=== PATIENT | male | born 1950 | race Hispanic/Latino ===

== ENCOUNTER → 2018-05-08 | Outpatient (CLI) | payer MEDICARE ==
[~2018-05-08] MED LIST: REGADENOSON 0.4 MG/5 ML PF SYG IVP SCH
== END | disposition home or self-care (01) ==
LOC: SHCH 08:16
PROVIDERS: ATTEND Internal Medicine Cardiovascular Disease
DX: I44.7 Left bundle-branch block, unspecified (principal); I35.0 Nonrheumatic aortic (valve) stenosis
CPT/HCPCS: 78452; 93017; 96374; A9500 ×2; J2785 ×2

== ENCOUNTER 2020-01-26 09:53 | Inpatient (IN) | payer MEDICARE ==
[~2020-01-26] VITALS: Ht 177.8 cm; Wt 103.6 kg
[2020-01-26 10:27] LABS: BASOPHILS % (AUTO) 0.2 % (0.0-5.0); EOSINOPHILS % (AUTO) 0.4 % (0.0-8.0); HEMATOCRIT 31.8 % (42-54); LYMPHOCYTES % (AUTO) 5.9 % (21.0-51.0); MEAN CORPUSCULAR VOLUME 88.3 fL (79-99); NEUTROPHILS % (AUTO) 84.1 % (40.0-77.0); PLATELET COUNT (AUTO) 142 K/uL (130-400); RED CELL DISTRIBUTION WIDTH 13.2 % (11.0-15.5); WHITE BLOOD COUNT (AUTO) 9.7 K/uL (4.8-10.8)
[2020-01-26 10:35] LABS: CREATININE 1.7 mg/dL (0.5-1.5); POTASSIUM 3.7 mmol/L (3.5-5.1)
[2020-01-26 10:36] LABS: INR 0.97 (0.85-1.15); PARTIAL THROMBOPLASTIN TIME 32.2 SEC (26.3-35.5); PROTHROMBIN TIME 10.5 SEC (9.6-11.6)
[2020-01-26 10:48] LABS: ALBUMIN 2.9 g/dL (3.5-5.0); BILIRUBIN,TOTAL 1.8 mg/dL (0.2-1.0); TOTAL PROTEIN, SERUM 6.4 g/dL (6.0-8.3)
[2020-01-26 10:57] LABS: B-TYPE NATRIURETIC PEPTIDE 521 pg/mL (0-100)
[2020-01-26] MEDS ORDERED: BENZONATATE 100 MG CAPSULE PO ONE (11:27)
[2020-01-26] MEDS ORDERED: FUROSEMIDE 10 MG/ML 4ML VIAL ONE (11:27)
[2020-01-26] MEDS ORDERED: IPRATROPIUM/ALBUTEROL SULFATE 3 ML SOLUTION IH ONE (11:33)
[2020-01-26] MEDS ORDERED: BENZONATATE 100 MG CAPSULE PO PRN (13:45)
[2020-01-26] MEDS: IPRATROPIUM/ALBUTEROL SULFATE 3 ML SOLUTION IH SCH ×3 (14:00→21:23)
[2020-01-26] MEDS ORDERED: SITA100T12 PO (14:12)
[2020-01-26] MEDS ORDERED: LABE300T2 PO (14:12)
[2020-01-26] MEDS ORDERED: ASPI-1197 PO (14:12)
[2020-01-26] MEDS ORDERED: AMLO1CAP2 PO (14:12)
[2020-01-26] MEDS ORDERED: GLIM4TAB36 PO (14:13)
[2020-01-26] MEDS ORDERED: ROSU20TA23 PO (14:13)
[2020-01-26] MEDS ORDERED: FISH1CAP20 PO (14:13)
[2020-01-26] MEDS ORDERED: METF-526 PO (14:13)
[2020-01-26] MEDS ORDERED: TAMS-1 PO (14:13)
[2020-01-26] MEDS ORDERED: TERA5CAP4 PO (14:13)
[2020-01-26] MEDS ORDERED: AZITHROMYCIN 500MG+NS 250ML 250 ML IV SCH (14:15)
--- NOTE | 2020-01-26 16:00 | NUR ---
ADMISSION FROM ER. PER SERVICES OF EDI BLAIR .PT AAO X 3 , REVIEW PLAN OF CARE . PLACED ON DROPLET ,DUE TO COUGHING , AND REVIEW CALL LIGHT, SAFETY, AND FALL RISK , HOB UP.
[2020-01-26] MEDS ORDERED: SODIUM CHLORIDE 3% FOR INHALATION 4 ML/AMP VIAL.NEB IH ONE (16:16)
[2020-01-26 16:22] VITALS: BP 148/92
[2020-01-26] MEDS ORDERED: IPRATROPIUM/ALBUTEROL SULFATE 3 ML SOLUTION IH SCH (18:00)
[2020-01-26 19:56] VITALS: BP 135/65
[2020-01-26] MEDS ORDERED: GLUCAGON 1MG KIT 1 MG ML IM PRN (20:30)
[2020-01-26] MEDS ORDERED: DEXTROSE 50%-WATER 50 ML DISP.SYRIN IV ONE (20:33)
--- NOTE | 2020-01-26 20:40 | NUR ---
HS BLOOD GLUCOSE HS BLOOD GLUCOSE OF 40; RECHECK ON OPPOSITE ARM IS 38. PT IS ASYMPTOMATIC. PT GIVEN SANDWICH, PEANUT BUTTER, CARROTS, AND FRUIT. PT TOLERATING WELL. PER HYPOGLYCEMIA PROTOCOL, PT ALSO GIVEN 25 ML OF IV DEXTROSE 50%. NO S/S/ OF DISTRESS. WILL REASSESS SHORTLY
[2020-01-26] MEDS: FUROSEMIDE 10 MG/ML 4ML VIAL IV SCH (21:06)
[2020-01-26] MEDS: AZITHROMYCIN 500MG+NS 250ML 250 ML IV SCH (21:08)
[2020-01-26] MEDS ORDERED: DEXTROSE 5%-WATER 1,000 ML IV ONE (23:41)
[2020-01-26] MEDS: DEXTROSE 5%-WATER 1,000 ML IV SCH (23:45)
[2020-01-26 23:49] VITALS: BP 148/78
--- NOTE | 2020-01-27 00:15 | NUR ---
PT ARRIVED VIA STRETCHER WITH TONJA SHETTY. PT DENIES ANY PAIN OR DISCOMFORT. ON 2L VIA NC, O2 AT 92%. SPOUSE AT BEDSIDE. TELE PACK PLACED ON PATIENT, CALLED [facility]ORA TELE MONITOR, PT SR 82. DROPLET PRECAUTION, PT WITH STRONG COUGH. BED TO LOWEST LEVEL. CALL LIGHT WITHIN REACH.
[2020-01-27] MEDS ORDERED: BENZONATATE 100 MG CAPSULE PO ONE (01:30)
--- NOTE | 2020-01-27 01:55 | NUR ---
BLOOD SUGAR BS AT 33 PT ASYMPTOMATIC. PT IS EATING A SANDWICH AND CARROTS AT BEDSIDE. DENIES ANY DISCOMFORT. D50W 50 ML GIVEN VIA IV. WILL CONTINUE TO MONITOR PT AND WILL RECHECK BLOOD SUGAR SHORTLY.
[2020-01-27] MEDS: DEXTROSE 50%-WATER 50 ML DISP.SYRIN IV PRN ×2 (02:02→09:29)
[2020-01-27] MEDS: IPRATROPIUM/ALBUTEROL SULFATE 3 ML SOLUTION IH SCH ×6 (02:04→22:24)
[2020-01-27] MEDS: DEXTROSE 5%-WATER 1,000 ML IV SCH ×2 (02:07→21:48)
[2020-01-27] MEDS: CEFTRIAXONE SODIUM 1 GM IVP SCH (02:11)
--- NOTE | 2020-01-27 02:30 | NUR ---
BLOOD SUGAR BS AT 137 PT IS LAYING DOWN DENIES ANY DISCOMFORT. O2 AT 3L.
[2020-01-27 04:13] VITALS: BP 147/74
--- NOTE | 2020-01-27 05:15 | NUR ---
BLOOD SUGAR BS AT 102. PT GIVEN APPLE JUICE TO DRINK. NO SIGNS OF DISCOMFORT OR PAIN.
[2020-01-27 06:12] LABS: BASOPHILS % (AUTO) 0.2 % (0.0-5.0); EOSINOPHILS % (AUTO) 0.3 % (0.0-8.0); HEMATOCRIT 31.1 % (42-54); LYMPHOCYTES % (AUTO) 7.5 % (21.0-51.0); MEAN CORPUSCULAR HEMOGLOBIN 29.9 pg (27.0-33.0); MEAN CORPUSCULAR HGB CONC 33.1 g/dL (32.0-36.0); MEAN CORPUSCULAR VOLUME 90.1 fL (79-99); NEUTROPHILS % (AUTO) 83.4 % (40.0-77.0); PLATELET COUNT (AUTO) 143 K/uL (130-400); RED BLOOD CELL COUNT(AUTO) 3.45 MIL/uL (4.50-6.20); RED CELL DISTRIBUTION WIDTH 13.2 % (11.0-15.5); WHITE BLOOD COUNT (AUTO) 9.1 K/uL (4.8-10.8)
[2020-01-27 06:28] LABS: CREATININE 1.8 mg/dL (0.5-1.5); CRP QUANTITATIVE 104.9 mg/L (0.00-9.0); POTASSIUM 3.2 mmol/L (3.5-5.1)
[2020-01-27 07:00] VITALS: BP 148/80
[2020-01-27 07:23] LABS: B-TYPE NATRIURETIC PEPTIDE 741 pg/mL (0-100)
[2020-01-27 08:08] LABS: ERYTHROCYTE SEDIMENTATION RATE 61 MM/HR (0-20)
[2020-01-27] MEDS: FISH OIL 1000 MG/CAP PO SCH ×2 (09:17→21:39)
[2020-01-27] MEDS: FUROSEMIDE 10 MG/ML 4ML VIAL IV SCH ×2 (09:17→21:41)
[2020-01-27] MEDS: AMLODIPINE-BENAZEPRIL 5-20 MG PO SCH (09:18)
[2020-01-27] MEDS: ASPIRIN 81MG TAB.CHEW PO SCH (09:19)
[2020-01-27] MEDS: OSELTAMIVIR PHOSPHATE 75 MG CAP PO SCH ×2 (09:19→21:40)
[2020-01-27] MEDS: LABETALOL HCL 200 MG TABLET PO SCH ×3 (09:19→21:40)
[2020-01-27 11:00] VITALS: BP 118/92
--- NOTE | 2020-01-27 15:59 | NUR ---
Dr. Tong's office notified of endocrinology consult for evaluation recurrent hypoglycemia
[2020-01-27 16:00] VITALS: BP 133/70
[2020-01-27 20:00] VITALS: BP 136/73
[2020-01-27 21:02] LABS: ABG HCO3 26.8 mmol/L (21.0-28.0); ABG OXYGEN SATURATION 93.9 % (95.0-99.0); ABG PCO2 38 mmHg (35-48)
[2020-01-27] MEDS ORDERED: GLUCAGON 1MG KIT 1 MG ML IM PRN (21:15)
[2020-01-27] MEDS ORDERED: DEXTROSE 50%-WATER 50 ML DISP.SYRIN IV PRN (21:15)
[2020-01-27] MEDS: AZITHROMYCIN 500MG+NS 250ML 250 ML IV SCH (21:37)
[2020-01-27] MEDS: TERAZOSIN HCL 5 MG CAPSULE PO SCH (21:38)
[2020-01-27] MEDS: TAMSULOSIN HCL 0.4 MG CAP.ER.24H PO SCH (21:39)
[2020-01-27] MEDS: ATORVASTATIN CALCIUM 40 MG TABLET PO SCH (21:40)
[2020-01-28] VITALS: BP 130/72
[2020-01-28] MEDS: CEFTRIAXONE SODIUM 1 GM IVP SCH (01:33)
[2020-01-28] MEDS: IPRATROPIUM/ALBUTEROL SULFATE 3 ML SOLUTION IH SCH ×6 (01:56→21:34)
[2020-01-28 04:18] VITALS: BP 134/75
[2020-01-28 05:29] LABS: BASOPHILS % (AUTO) 0.3 % (0.0-5.0); EOSINOPHILS % (AUTO) 1.8 % (0.0-8.0); HEMATOCRIT 30.8 % (42-54); LYMPHOCYTES % (AUTO) 12.3 % (21.0-51.0); MEAN CORPUSCULAR HEMOGLOBIN 29.6 pg (27.0-33.0); MEAN CORPUSCULAR HGB CONC 33.4 g/dL (32.0-36.0); MEAN CORPUSCULAR VOLUME 88.5 fL (79-99); MONOCYTES % (AUTO) 11.3 % (3.0-13.0); NEUTROPHILS % (AUTO) 73.6 % (40.0-77.0); PLATELET COUNT (AUTO) 152 K/uL (130-400); RED BLOOD CELL COUNT(AUTO) 3.48 MIL/uL (4.50-6.20); RED CELL DISTRIBUTION WIDTH 13.3 % (11.0-15.5); WHITE BLOOD COUNT (AUTO) 7.3 K/uL (4.8-10.8)
[2020-01-28 05:59] LABS: B-TYPE NATRIURETIC PEPTIDE 611 pg/mL (0-100)
[2020-01-28] MEDS: INSULIN HUMULIN R 100 UNIT/ML 3ML SQ SCH ×4 (06:29→21:00)
[2020-01-28 06:37] LABS: CREATININE 1.7 mg/dL (0.5-1.5); PHOSPHORUS 3.6 mg/dL (2.5-4.9); POTASSIUM 3.1 mmol/L (3.5-5.1); THYROID STIMULATING HORMONE 2.79 uIU/mL (0.36-3.74)
[2020-01-28 07:53] VITALS: BP 139/74
[2020-01-28] MEDS: ASPIRIN 81MG TAB.CHEW PO SCH (08:16)
[2020-01-28] MEDS: OSELTAMIVIR PHOSPHATE 75 MG CAP PO SCH (08:16)
[2020-01-28] MEDS: AMLODIPINE-BENAZEPRIL 5-20 MG PO SCH (08:16)
[2020-01-28] MEDS: FISH OIL 1000 MG/CAP PO SCH ×2 (08:16→21:00)
[2020-01-28] MEDS: LABETALOL HCL 200 MG TABLET PO SCH ×3 (08:17→21:01)
[2020-01-28] MEDS: FUROSEMIDE 10 MG/ML 4ML VIAL IV SCH ×2 (08:18→20:59)
[2020-01-28 11:54] VITALS: BP 119/65
--- NOTE | 2020-01-28 15:40 | NUR ---
DC PLAN VISITED WITH PATIENT. PATIENT LIVES WITH SPOUSE. INDEPENDENT ABLE TO PERFORM ADL'S. PATIENT HAS NO SERVICES OR DME'S. FEELS SAFE TO RETURN HOME. Addendum: 01/28/20 at 1541 by MITCHELL BAEZ RN CM Amended: Links added.
[2020-01-28 15:48] VITALS: BP 116/70
--- NOTE | 2020-01-28 16:14 | NUR ---
[id number] Patient's signed IM Letter, I faxed IM Letter to [phone] and placed in chart under consent tab
[2020-01-28] MEDS ORDERED: IOHEXOL-350 50ML VIAL IV ONE (16:52)
[2020-01-28 20:40] VITALS: BP 139/74
[2020-01-28] MEDS: AZITHROMYCIN 500MG+NS 250ML 250 ML IV SCH (20:59)
[2020-01-28] MEDS: TERAZOSIN HCL 5 MG CAPSULE PO SCH (21:00)
[2020-01-28] MEDS: TAMSULOSIN HCL 0.4 MG CAP.ER.24H PO SCH (21:00)
[2020-01-28] MEDS: ATORVASTATIN CALCIUM 40 MG TABLET PO SCH (21:01)
[2020-01-29] VITALS: BP 125/70
[2020-01-29] MEDS: IPRATROPIUM/ALBUTEROL SULFATE 3 ML SOLUTION IH SCH ×3 (01:13→10:02)
[2020-01-29] MEDS: CEFTRIAXONE SODIUM 1 GM IVP SCH (01:31)
[2020-01-29 04:19] VITALS: BP 130/78
[2020-01-29 04:23] LABS: BASOPHILS % (AUTO) 0.4 % (0.0-5.0); EOSINOPHILS % (AUTO) 4.9 % (0.0-8.0); HEMATOCRIT 31.4 % (42-54); LYMPHOCYTES % (AUTO) 12.9 % (21.0-51.0); MEAN CORPUSCULAR HEMOGLOBIN 29.4 pg (27.0-33.0); MEAN CORPUSCULAR HGB CONC 32.8 g/dL (32.0-36.0); MEAN CORPUSCULAR VOLUME 89.7 fL (79-99); MONOCYTES % (AUTO) 10.8 % (3.0-13.0); NEUTROPHILS % (AUTO) 70.4 % (40.0-77.0); PLATELET COUNT (AUTO) 174 K/uL (130-400); RED CELL DISTRIBUTION WIDTH 13.2 % (11.0-15.5); WHITE BLOOD COUNT (AUTO) 6.7 K/uL (4.8-10.8)
[2020-01-29 04:35] LABS: CREATININE 1.6 mg/dL (0.5-1.5); POTASSIUM 3.4 mmol/L (3.5-5.1)
[2020-01-29 04:39] LABS: % IRON SATURATION 14.4 % (30-44)
[2020-01-29 04:48] LABS: B-TYPE NATRIURETIC PEPTIDE 520 pg/mL (0-100)
[2020-01-29] MEDS: INSULIN HUMULIN R 100 UNIT/ML 3ML SQ SCH ×2 (06:06→11:30)
[2020-01-29 07:47] VITALS: BP 147/85
[2020-01-29] MEDS ORDERED: METFORMIN HCL 500 MG TAB.SR.24H PO SCH (08:00)
[2020-01-29] MEDS: FISH OIL 1000 MG/CAP PO SCH (08:17)
[2020-01-29] MEDS: ASPIRIN 81MG TAB.CHEW PO SCH (08:17)
[2020-01-29] MEDS: LABETALOL HCL 200 MG TABLET PO SCH (08:25)
[2020-01-29] MEDS: FUROSEMIDE 10 MG/ML 4ML VIAL IV SCH (08:25)
[2020-01-29] MEDS: AMLODIPINE-BENAZEPRIL 5-20 MG PO SCH (08:25)
[2020-01-29 11:47] VITALS: BP 131/83
[2020-01-29] MEDS ORDERED: FURO40TA7 PO (12:47)
[2020-01-29] MEDS ORDERED: DOXY100T2 PO (13:01)
[2020-01-29] MEDS ORDERED: LINA5TAB PO (13:01)
[2020-01-29 15:30] VITALS: BP 135/68
--- NOTE | 2020-01-29 15:30 | NUR ---
DISCHARGE VERBAL & WRITTEN DISCHARGE INSTRUCTIONS REVIEWED & GIVEN TO PT & SPOUSE. QUESTIONS ENCOURAGED & CLARIFIED. PROPER CARE & MGT OF BRONCHITIS/PNA REVIEWED. NEW PRESCRIBED MEDICATIONS REVIEWED. REINFORCED IMPORTANCE OF TAKING ABX INDICATED. F/U APPT REVIEWED. TELE TOM REMOVED. IV X 2 DC'D. PT & SPOUSE TO GATHER PERSONAL BELONGINGS. WILL NOTIFY STAFF WHEN READY TO BE TAKEN TO PRIVATE VEHICLE.
--- NOTE | 2020-01-29 15:45 | NUR ---
DISCHARGE PT TAKEN TO PRIVATE VEHICLE VIA WC BY Mayo MELENDEZ PCP, ACCOMPANIED BY SPOUSE. NO DISTRESS NOTED.
== END 2020-01-29 15:45 | disposition home or self-care (01) | DRG 291 ==
LOC: EDH 09:53 → EDHIP 13:43 → OBSVTOIN 13:43 → 4DH 15:46 → 2AH 01-27 01:14
PROVIDERS: ADMIT Family Medicine; ATTEND Family Medicine
DX: I13.0 Hypertensive heart and chronic kidney disease with heart failure and stage 1 through stage 4 chronic kidney disease, or unspecified chronic kidney disease (principal); J18.9 Pneumonia, unspecified organism; J96.01 Acute respiratory failure with hypoxia; I50.31 Acute diastolic (congestive) heart failure; J98.11 Atelectasis; N17.9 Acute kidney failure, unspecified; J20.9 Acute bronchitis, unspecified; J06.9 Acute upper respiratory infection, unspecified; E11.649 Type 2 diabetes mellitus with hypoglycemia without coma; K80.20 Calculus of gallbladder without cholecystitis without obstruction; E11.22 Type 2 diabetes mellitus with diabetic chronic kidney disease; E78.5 Hyperlipidemia, unspecified; I35.0 Nonrheumatic aortic (valve) stenosis; N18.3 Chronic kidney disease, stage 3 (moderate); N40.0 Benign prostatic hyperplasia without lower urinary tract symptoms; Z79.84 Long term (current) use of oral hypoglycemic drugs; Z83.3 Family history of diabetes mellitus; Z82.49 Family history of ischemic heart disease and other diseases of the circulatory system
CPT/HCPCS: 36415; 36600; 71046; 71260; 80048; 80053; 82550; 82803; 82947; 82948; 83036; 83540; 83550; 83735; 83880; 84100; 84145; 84443; 84484; 85025; 85610; 85651; 85730; 86140; 87071; 87205; 87804; 93005; 93306; 93970; 94640; 94760; G0378; J0456; J0696; J1940; J7070; Q9967

== ENCOUNTER 2020-11-05 10:02 | Inpatient (IN) | payer MEDICARE ==
[~2020-11-05] VITALS: Ht 177.8 cm; Wt 101.2 kg
[~2020-11-05 10:02] MED LIST changes: +AMLO1CAP2 PO; +ASPI-1197 PO; +DOXY100T2 PO; +FISH1CAP20 PO; +FURO40TA7 PO; +LABE300T2 PO; +LINA5TAB PO; +METF-526 PO; -REGADENOSON 0.4 MG/5 ML PF SYG IVP SCH; +ROSU20TA23 PO; +TAMS-1 PO; +TERA5CAP4 PO
[2020-11-05 10:33] LABS: BASOPHILS % (AUTO) 0.3 % (0.0-5.0); HEMATOCRIT 38.4 % (42-54); LYMPHOCYTES % (AUTO) 8.8 % (21.0-51.0); MEAN CORPUSCULAR HEMOGLOBIN 30.1 pg (27.0-33.0); MEAN CORPUSCULAR HGB CONC 34.4 g/dL (32.0-36.0); MEAN CORPUSCULAR VOLUME 87.5 fL (79-99); MONOCYTES % (AUTO) 7.3 % (3.0-13.0); PLATELET COUNT (AUTO) 149 K/uL (130-400); RED BLOOD CELL COUNT(AUTO) 4.39 MIL/uL (4.50-6.20); RED CELL DISTRIBUTION WIDTH 13.1 % (11.0-15.5); WHITE BLOOD COUNT (AUTO) 3.2 K/uL (4.8-10.8)
[2020-11-05 10:45] LABS: ABG OXYGEN SATURATION 88.1 % (95.0-99.0); ABG PCO2 33 mmHg (35-48)
[2020-11-05 10:49] LABS: INR 0.95 (0.85-1.15); PROTHROMBIN TIME 10.2 SEC (9.6-11.6)
[2020-11-05 10:51] LABS: PARTIAL THROMBOPLASTIN TIME 30.6 SEC (26.3-35.5)
[2020-11-05 10:57] LABS: ALBUMIN 2.8 g/dL (3.5-5.0); BILIRUBIN,TOTAL 1.1 mg/dL (0.2-1.0); CREATININE 2.3 mg/dL (0.5-1.5); CRP QUANTITATIVE 169.8 mg/L (0.00-9.0); POTASSIUM 3.4 mmol/L (3.5-5.1); TOTAL PROTEIN, SERUM 7.3 g/dL (6.0-8.3); TROPONIN I 0.14 ng/mL (0.00-0.06)
[2020-11-05] MEDS ORDERED: BENZONATATE 100 MG CAPSULE PO ONE (10:57)
[2020-11-05 11:39] LABS: ERYTHROCYTE SEDIMENTATION RATE 105 MM/HR (0-20)
[2020-11-05] MEDS ORDERED: ALBUTEROL INHALER 90MCG/INH IH ONE (13:09)
[2020-11-05] MEDS ORDERED: ENOXAPARIN SODIUM 100 MG/1 ML SQ ONE (13:10)
[2020-11-05] MEDS ORDERED: METHYLPREDNISOLONE SOD SUCC 40MG/ML 1ML ONE (13:10)
[2020-11-05] MEDS ORDERED: DOXYCYCLINE 100MG+NS 250ML 250 ML IV ONE (13:10)
[2020-11-05] MEDS ORDERED: FAMOTIDINE/PF 20 MG/2 ML VIAL IV ONE ×2 (13:10→20:18)
[2020-11-05] MEDS ORDERED: IVERMECTIN 3 MG TAB PO SCH (13:30)
[2020-11-05 13:43] LABS: APPEARANCE,URINE Clear (CLEAR); BILIRUBIN,URINE Negative (NEGATIVE); COLOR,URINE Yellow (YELLOW); GLUCOSE, URINE (UA) 250 mg/dL (NEGATIVE); KETONES,URINE Trace mg/dL (NEGATIVE); LEUKOCYTE ESTERASE ,URINE Negative (NEGATIVE); NITRATE,URINE Negative (NEGATIVE); OCCULT BLOOD,URINE Moderate (NEGATIVE); PH,URINE 5.5 (5.0-8.0); PROTEIN,URINE >=1000 mg/dL (NEGATIVE)
[2020-11-05] MEDS ORDERED: DEXAMETHASONE SOD PHOSPHATE 4 MG/ML 1ML VIAL IVP SCH (14:00)
[2020-11-05] MEDS ORDERED: CEFTRIAXONE SODIUM 1 GM IVP SCH (14:00)
[2020-11-05] MEDS ORDERED: DOXYCYCLINE 100MG+NS 250ML IV SCH (14:00)
[2020-11-05] MEDS ORDERED: ONDANSETRON HCL 4 MG/2 ML VIAL IV PRN (14:00)
[2020-11-05] MEDS ORDERED: ACETAMINOPHEN 325 MG TAB PO PRN ×2 (14:00)
[2020-11-05] MEDS ORDERED: GUAIFENESIN-DM 200/20 MG 10 ML PO PRN (14:00)
[2020-11-05] MEDS ORDERED: NITROGLYCERIN 0.4 MG SL TAB SL PRN (14:00)
[2020-11-05] MEDS ORDERED: ERGOCALCIFEROL (VITAMIN D2) 50,000 UNIT CAPSULE PO ONE (14:00)
[2020-11-05 14:15] LABS: BACTERIA,URINE Rare /HPF (None Seen); RBC,URINE 0-1 /HPF (0-1); SQUAMOUS EPITHELIAL CELL,UR Rare /HPF (0-2)
[2020-11-05 14:31] LABS: MAGNESIUM 2.2 mg/dL (1.80-2.40); PHOSPHORUS 3.7 mg/dL (2.5-4.9)
[2020-11-05] MEDS ORDERED: PHARMACY COMMUNICATION MISC SCH (14:45)
[2020-11-05] MEDS ORDERED: GLUCAGON 1MG KIT 1 MG ML IM PRN (14:45)
[2020-11-05] MEDS ORDERED: DEXTROSE 50%-WATER 50 ML DISP.SYRIN IV PRN (14:45)
[2020-11-05] MEDS ORDERED: ACETYLCYSTEINE 600 MG CAPSULE ONE ×2 (16:05→20:17)
[2020-11-05] MEDS ORDERED: ASCORBIC ACID 500 MG TAB ONE (16:05)
[2020-11-05] MEDS ORDERED: ZINC SULFATE 220 CAPSULE ONE (16:05)
[2020-11-05] MEDS ORDERED: CEFTRIAXONE SODIUM 1 GM ONE (16:05)
[2020-11-05] MEDS ORDERED: ERGOCALCIFEROL (VITAMIN D2) 50,000 UNIT CAPSULE ONE (16:05)
[2020-11-05] MEDS ORDERED: INSULIN HUMULIN R 100 UNIT/ML 3ML SQ SCH (16:30)
[2020-11-05] MEDS ORDERED: INSULIN HUMULIN R 100 UNIT/ML 3ML ONE ×2 (17:32→20:54)
[2020-11-05] MEDS ORDERED: DEXAMETHASONE SOD PHOSPHATE 10MG/ML 1ML VIAL ONE (20:17)
[2020-11-05] MEDS ORDERED: FAMOTIDINE/PF 20 MG/2 ML VIAL IV SCH (21:00)
[2020-11-05] MEDS ORDERED: DOXYCYCLINE 100MG+NS 250ML 250 ML IV SCH (21:00)
[2020-11-05] MEDS ORDERED: ACETYLCYSTEINE 600 MG CAPSULE PO SCH (21:00)
[2020-11-06] MEDS ORDERED: DOXYCYCLINE 100MG+NS 250ML 250 ML IV ONE (04:02)
[2020-11-06] MEDS ORDERED: CEFTRIAXONE SODIUM 1 GM ONE ×2 (04:02→17:17)
[2020-11-06] MEDS ORDERED: ACETYLCYSTEINE 600 MG CAPSULE ONE ×2 (08:42→21:21)
[2020-11-06] MEDS ORDERED: ASCORBIC ACID 500 MG TAB ONE (08:42)
[2020-11-06] MEDS ORDERED: ZINC SULFATE 220 CAPSULE ONE (08:43)
[2020-11-06] MEDS ORDERED: ENOXAPARIN SODIUM 40 MG/0.4 ML SYRINGE SQ ONE (08:43)
[2020-11-06] MEDS ORDERED: INSULIN HUMULIN R 100 UNIT/ML 3ML ONE ×3 (08:44→17:42)
[2020-11-06] MEDS ORDERED: ZINC SULFATE 220 CAPSULE PO SCH (09:00)
[2020-11-06] MEDS ORDERED: ASCORBIC ACID 500 MG TAB PO SCH (09:00)
[2020-11-06] MEDS ORDERED: ENOXAPARIN SODIUM 40 MG/0.4 ML SYRINGE SQ SCH ×2 (09:00→21:00)
[2020-11-06] MEDS ORDERED: GUAIFENESIN-DM 200/20 MG 10 ML ONE ×2 (09:14→19:26)
[2020-11-06] MEDS ORDERED: DEXAMETHASONE SOD PHOSPHATE 10MG/ML 1ML VIAL ONE (13:29)
[2020-11-06] MEDS ORDERED: INSULIN HUMULIN R 100 UNIT/ML 3ML SQ SCH ×2 (16:30→17:00)
--- NOTE | 2020-11-06 16:48 | NUR ---
DC PLAN NO ANSWER TO CALL Addendum: 11/06/20 at 1649 by MITCHELL BAEZ RN CM Amended: Links added.
[2020-11-06] MEDS ORDERED: DEXAMETHASONE SOD PHOSPHATE 4 MG/ML 1ML VIAL IVP SCH (21:00)
[2020-11-06] MEDS ORDERED: INSULIN GLARGINE 100 UNITS/ML 10 ML VIAL SQ SCH (21:00)
[2020-11-06] MEDS ORDERED: DOXYCYCLINE HYCLATE 100 MG TABLET PO ONE (21:21)
[2020-11-06] MEDS ORDERED: FAMOTIDINE/PF 20 MG/2 ML VIAL IV ONE (21:22)
[2020-11-07] MEDS ORDERED: CEFTRIAXONE SODIUM 1 GM ONE (02:47)
[2020-11-07 04:09] LABS: ABG BASE EXCESS -3.3 mmol/L (-2.0-3.0); ABG HCO3 19.1 mmol/L (21.0-28.0); ABG OXYGEN SATURATION 88.1 % (95.0-99.0); ABG PCO2 28 mmHg (35-48)
[2020-11-07 06:06] LABS: BASOPHILS % (AUTO) 0.1 % (0.0-5.0); HEMATOCRIT 35.9 % (42-54); LYMPHOCYTES % (AUTO) 2.7 % (21.0-51.0); MEAN CORPUSCULAR HEMOGLOBIN 30.1 pg (27.0-33.0); MEAN CORPUSCULAR HGB CONC 34.3 g/dL (32.0-36.0); MONOCYTES % (AUTO) 3.8 % (3.0-13.0); NEUTROPHILS % (AUTO) 92.8 % (40.0-77.0); PLATELET COUNT (AUTO) 184 K/uL (130-400); RED BLOOD CELL COUNT(AUTO) 4.08 MIL/uL (4.50-6.20); RED CELL DISTRIBUTION WIDTH 13.5 % (11.0-15.5)
[2020-11-07 06:25] LABS: ALBUMIN 2.2 g/dL (3.5-5.0); BILIRUBIN,TOTAL 0.7 mg/dL (0.2-1.0); CREATININE 2.9 mg/dL (0.5-1.5); CRP QUANTITATIVE 119.3 mg/L (0.00-9.0); POTASSIUM 3.3 mmol/L (3.5-5.1); TOTAL PROTEIN, SERUM 6.3 g/dL (6.0-8.3)
[2020-11-07 06:43] LABS: B-TYPE NATRIURETIC PEPTIDE 928 pg/mL (0-100)
[2020-11-07] MEDS ORDERED: SODIUM CHLORIDE 0.9% 500ML 500 ML IV ONE ×2 (07:44→17:32)
[2020-11-07] MEDS ORDERED: LIDOCAINE PF 2% 5ML ABBOJECT ONE (07:49)
[2020-11-07 07:58] LABS: ABG BASE EXCESS -5.4 mmol/L (-2.0-3.0); ABG HCO3 16.2 mmol/L (21.0-28.0); ABG OXYGEN SATURATION 83.8 % (95.0-99.0); ABG PCO2 23 mmHg (35-48)
[2020-11-07] MEDS ORDERED: POTASSIUM CHLORIDE 20MEQ/100ML 0 ML IV ONE (08:01)
[2020-11-07] MEDS ORDERED: POTASSIUM CHLORIDE 10MEQ/100ML 200 ML IV ONE (08:08)
[2020-11-07] MEDS ORDERED: FENTANYL CITRATE PF 50 MCG/1 ML 2ML VIAL IVP PRN (08:15)
[2020-11-07] MEDS ORDERED: ARTIFICAL TEARS SOL 15 ML OU SCH (08:15)
[2020-11-07] MEDS ORDERED: MIDAZOLAM 100MG-0.9% NS 100ML 50 ML IV PRN (08:15)
[2020-11-07] MEDS ORDERED: CHLORHEXIDINE GLUCONATE 473 ML MOUTHWASH MM SCH (08:15)
[2020-11-07 08:37] LABS: MAGNESIUM 2.6 mg/dL (1.80-2.40); PHOSPHORUS 4.5 mg/dL (2.5-4.9)
[2020-11-07 09:15] LABS: TROPONIN I 0.35 ng/mL (0.00-0.06)
[2020-11-07] MEDS ORDERED: AMIODARONE HCL 900 MG in DEXTROSE 5%-WATER 500 ML IV SCH (09:46)
[2020-11-07] MEDS ORDERED: FENTANYL 2500MCG+NS 250ML 250 ML IV SCH (10:00)
[2020-11-07 10:26] LABS: CREATININE 2.8 mg/dL (0.5-1.5); POTASSIUM 3.6 mmol/L (3.5-5.1)
[2020-11-07] MEDS ORDERED: AMIODARONE HCL 50 MG/ML 3 ML VIAL ONE ×4 (13:42→14:55)
[2020-11-07] MEDS ORDERED: METOPROLOL TARTRATE 1 MG/ML 5ML VIAL IV ONE (14:23)
[2020-11-07 15:47] LABS: TROPONIN I 0.29 ng/mL (0.00-0.06)
--- NOTE | 2020-11-07 17:15 | NUR ---
PT ON BIPAP AT 100%, SATS CONT TO FLUCTUATE BETWEEN 74 [address]%. DR APONTE MADE AWARE. DR TO BEDSIDE, PREPARING TO INTUBATE, RT AT BEDSIDE ALSO. 1724 SAO2 DECREASING, PT IS INTUBATED, SHALLOW RISE AND FALL OF CHEST NOTED, NOT PULSE CAN BE DETECTED BY THIS RN AND DANII RN. CHEST COMPRESSIONS STARTED, CODE BLUE CALLED. PLEASE REFER TO CODE DOCUMENT
[2020-11-07 17:33] LABS: ABG BASE EXCESS -17.4 mmol/L (-2.0-3.0); ABG HCO3 13.6 mmol/L (21.0-28.0); ABG OXYGEN SATURATION 33.2 % (95.0-99.0); ABG PCO2 53 mmHg (35-48)
[2020-11-07 17:54] LABS: ABG HCO3 16.4 mmol/L (21.0-28.0); ABG OXYGEN SATURATION 39.6 % (95.0-99.0); ABG PCO2 77 mmHg (35-48)
[2020-11-07] MEDS ORDERED: EPINEPHRINE 1 MG/ML AMPULE ONE (17:55)
--- NOTE | 2020-11-07 18:35 | NUR ---
PT ARRIVAL TO UNIT PT ARRIVED FROM ED WITH RNS X2 AT 1703. PT ON NONREBREATHER, PT ANXIOUS AND PULLED MASK AWAY FROM HIS FACE, THIS NURSE REMINDED PT NOT TO REMOVED MASK AND HE PUT IT BACK IN PLACE. PT AAO X 4, ANXIOUS, DIAPHORETIC, AND USING ACCESSORY MUSCLES WHILE BREATHING. HOB INCREASED TO HIGH CHURCH'S TO FACILITATE LUNG EXPANSION. HEART RATE ELEVATED TO 140s, ELEVATED BP AND RESPIRATORY RATE. 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 NO NEW ORDERS AT THIS TIME.
--- NOTE | 2020-11-07 19:48 | NUR ---
PT 1757 TIME OF CALLED. 1805 [employer] CONTACTED, PT SEE ASSOCIATED FORMS. 1900 POST MORTEM CARE PROVIDED, SECURITY GIVEN PT WATCH AND CELL PHONE IN LABELED BAG.
[2020-11-07] MEDS ORDERED: AMIODARONE HCL 200 MG TABLET PO SCH (21:00)
== END 2020-11-07 17:58 | disposition expired | DRG 208 ==
LOC: EDH 10:02 → EDHIP 13:50 → 2CV 11-07 17:11
PROVIDERS: ADMIT Internal Medicine; ATTEND Internal Medicine
PROC: 5A0935A Assistance with Respiratory Ventilation, Less than 24 Consecutive Hours, High Flow/Velocity Cannula (ICD-10-PCS; 2020-11-06)
PROC: 5A1935Z Respiratory Ventilation, Less than 24 Consecutive Hours (ICD-10-PCS; principal; 2020-11-07)
PROC: 0BH17EZ Insertion of Endotracheal Airway into Trachea, Via Natural or Artificial Opening (ICD-10-PCS; 2020-11-07)
PROC: 5A12012 Performance of Cardiac Output, Single, Manual (ICD-10-PCS; 2020-11-07)
PROC: 5A09357 Assistance with Respiratory Ventilation, Less than 24 Consecutive Hours, Continuous Positive Airway Pressure (ICD-10-PCS; 2020-11-07)
PROC: XW13325 Transfusion of Convalescent Plasma (Nonautologous) into Peripheral Vein, Percutaneous Approach, New Technology Group 5 (ICD-10-PCS; 2020-11-07)
DX: U07.1 COVID-19 (principal); J12.89 Other viral pneumonia; J96.01 Acute respiratory failure with hypoxia; E44.0 Moderate protein-calorie malnutrition; E87.1 Hypo-osmolality and hyponatremia; N17.9 Acute kidney failure, unspecified; E11.22 Type 2 diabetes mellitus with diabetic chronic kidney disease; E11.65 Type 2 diabetes mellitus with hyperglycemia; E78.5 Hyperlipidemia, unspecified; E87.6 Hypokalemia; I12.9 Hypertensive chronic kidney disease with stage 1 through stage 4 chronic kidney disease, or unspecified chronic kidney disease; I35.0 Nonrheumatic aortic (valve) stenosis; R00.0 Tachycardia, unspecified; I44.7 Left bundle-branch block, unspecified; I46.9 Cardiac arrest, cause unspecified; I48.91 Unspecified atrial fibrillation; I49.1 Atrial premature depolarization; K76.0 Fatty (change of) liver, not elsewhere classified; N18.32 Chronic kidney disease, stage 3b; N40.0 Benign prostatic hyperplasia without lower urinary tract symptoms; Z80.9 Family history of malignant neoplasm, unspecified; Z82.49 Family history of ischemic heart disease and other diseases of the circulatory system; Z83.3 Family history of diabetes mellitus; Z79.899 Other long term (current) drug therapy; Z68.32 Body mass index [BMI] 32.0-32.9, adult
CPT/HCPCS: 31500; 36415; 36600; 71045; 76770; 80048; 80053; 81001; 82435; 82550; 82728; 82803; 82947; 82948; 83605; 83615; 83735; 83874; 83880; 84100; 84132; 84145; 84295; 84484; 85018; 85025; 85378; 85610; 85651; 85730; 86140; 86900; 86901; 86927; 87040; 87088; 87426; 87804; 92950; 93005; 93970; 94002; 94660; G0378; J0171; J0282; J0696; J1100; J1650; J1815; J2001; J2920; J3480; J3490; J7040; J7060